=== PATIENT | male | born 2000 | race Caucasian/White ===

== ENCOUNTER 2021-10-01 22:42 | Emergency (ER) | payer BC ==
[~2021-10-01] VITALS: Ht 195.6 cm; Wt 108.9 kg
[2021-10-02 00:10] VITALS: BP 125/70
== END 2021-10-02 01:55 | disposition home or self-care (01) ==
LOC: ER 22:46
DX: S09.90XA Unspecified injury of head, initial encounter (principal); V00.131A Fall from skateboard, initial encounter; Y93.51 Activity, roller skating (inline) and skateboarding; Y92.331 Roller skating rink as the place of occurrence of the external cause; Y99.8 Other external cause status
CPT/HCPCS: 70450-TC